=== PATIENT | female | born 1955 | race Caucasian/White ===

== ENCOUNTER 2018-04-16 08:28 | Outpatient (CLI) | payer MEDICARE ==
[~2018-04-16 08:28] MED LIST: AZIT250T PO
== END 2018-04-16 23:59 | disposition home or self-care (01) ==
LOC: DIABETIC 08:28
PROVIDERS: ATTEND Specialist
DX: E11.65 Type 2 diabetes mellitus with hyperglycemia (principal)
CPT/HCPCS: G0108